=== PATIENT | female | born 1950 | race Caucasian/White ===

== ENCOUNTER 2022-04-08 14:44 | Outpatient (CLI) | payer MEDICARE | END 2022-04-08 14:45 | disposition home or self-care (01) | LOC: CSHMAMMO 14:44 | PROVIDERS: ATTEND Physician Assistant | DX: Z12.31 Encounter for screening mammogram for malignant neoplasm of breast (principal) | CPT/HCPCS: 77063; 77067 ==

== ENCOUNTER 2022-05-02 08:37 | Inpatient (IN) | payer MEDICARE ==
[~2022-05-02 08:37] MED LIST: Fentanyl 100 MCG/2 ML VIAL ONE; Propofol 1,000 MG/100 ML VIAL IV ONE
[2022-05-02] MEDS ORDERED: NOREPINEPHRINE 8 MG/250 ML-D5W 250 ML ONE ×2 (08:38→12:16)
[2022-05-02] MEDS ORDERED: Iopamidol 300 61% 100 ML VIAL FS ONE (08:57)
[2022-05-02] MEDS ORDERED: Fentanyl 100 MCG/2 ML VIAL ONE (09:01)
[2022-05-02] MEDS ORDERED: Lidocaine 1% (PF) 30 ML VIAL ONE (09:25)
[2022-05-02] MEDS ORDERED: Nitroglycerin 50 MG/250 ML BOT 0 ML ONE (09:25)
[2022-05-02] MEDS ORDERED: Heparin 10,000 UNITS/ 10 ML VIAL ONE (09:25)
[2022-05-02] MEDS ORDERED: Bivalirudin 250 MG VIAL ONE (09:26)
[2022-05-02] MEDS ORDERED: Verapamil 5 MG/2 ML VIAL ONE (09:26)
[2022-05-02] MEDS ORDERED: Sodium Chloride 0.9% 1,000 ML ONE (09:26)
[2022-05-02] MEDS ORDERED: Adenosine 6 MG/2 ML VIAL ONE (09:26)
[2022-05-02] MEDS ORDERED: Sodium Chloride 0.9% 50 ML ONE (09:26)
[2022-05-02] MEDS ORDERED: Lidocaine 1% MPF 2 ML VIAL ONE (09:27)
[2022-05-02 09:31] LABS: #Basophils 0.2 10x3/uL (0.0-0.2); #Eosinphils 0.3 10x3/uL (0.0-0.5); #Monocytes 0.6 10x3/uL (0.0-1.1); #Neutrophils 15.9 10x3/uL (1.5-8.4); %Basophils 0.9 % (0.0-2.0); %Eosinophils 1.5 % (0.0-6.0); %Lymphocytes 11.9 % (18.0-47.0); Hemoglobin 12.3 g/dL (12.0-15.5); Mean Corpuscular HGB CONC 32.5 g/dL (32.0-36.0); Mean Corpuscular Hemoglobin 31.4 pg (27.0-33.0); Mean Corpuscular Volume 96.7 fl (81.6-98.3); Mean Platelet Volume 8.4 fl (7.4-10.4); Platelet Count 337 10x3/uL (150-450); RBC Distribution Width 14.1 % (11.5-14.5); Red Blood Cell (RBC) Count 3.92 10x6/uL (3.90-5.03); White Blood Cell (WBC) Count 19.4 10x3/uL (3.5-10.5)
[2022-05-02 09:50] LABS: ALT (SGPT) 22 U/L (8-55); AST (SGOT) 30 U/L (5-34); Albumin 3.8 g/dL (3.4-4.8); Alkaline Phosphatase 58 U/L (40-110); Anion Gap 17 mmol/L (10-20); BUN (Urea Nitrogen) 10 mg/dL (9.8-20.1); Bilirubin, Total 0.6 mg/dL (0.2-1.2); Calc. Creatinine Clearance 0 mL/min (70-130); Calcium 8.1 mg/dL (7.8-10.44); Carbon Dioxide 18 mmol/L (23-31); Chloride 108 mmol/L (98-107); Estimated GFR 76; Glucose 330 mg/dL (83-110); Lipase 28 U/L (8-78); Magnesium 2.3 mg/dL (1.6-2.6); Potassium 3.7 mmol/L (3.5-5.1); Protein, Total 5.8 g/dL (5.8-8.1); Sodium 139 mmol/L (136-145)
[2022-05-02 10:27] LABS: CKMB 16.1 ng/mL (0-6.6)
[2022-05-02 10:34] LABS: Bilirubin Neg (Negative); Blood, Urine 25 (Negative); Clarity Clear (Clear); Glucose, Urine (Dipstick) Normal (Negative); Ketone, Urine Negative (Negative); Leukocyte 25 (Negative); Nitrite Negative (Negative); Protein, Urine (Dipstick) 100 mg/dl (Neg-Trace); Specific Gravity, Urine 1.015 (1.005-1.030); Urobilinogen Normal mg/dL (Less than 2)
[2022-05-02 10:50] LABS: Bacteria/HPF Rare-Few HPF (None Seen); RBC/HPF 0-3 HPF (0-3); Squamous Epithelial 0-3 HPF (0-3); WBC/HPF 0-3 HPF (0-3)
[2022-05-02 12:05] LABS: ALV-art Gradient 308.875 mmHg (0-20); Actual Bicarbonate (HCO3a) 18.9 mEq/L (22-28); Base Excess (BEa) -7.9 mEq/L (-2.0 to +3.0); CO2 Tension 43.3 mmHg (35.0-45.0); Calcium, Ionized (arterial) 1.11 mmol/L (1.12-1.30); Carboxyhemoglobin (COHb) 0.3 gm% (0.0-3.0); Hemoglobin (Hb) 12.1 g/dL (12.0-16.0); O2 Tension (PaO2), arterial 64.8 mmHg (> 70.0); Potassium - ABG Lab 3.5 mmol/L (3.70-5.30); Puncture Site RRA; pH, Arterial 7.26 (7.35-7.45)
[2022-05-02] MEDS ORDERED: Communication Order-Pharmacy FS SCH (12:40)
[2022-05-02] MEDS ORDERED: Propofol 1,000 MG/100 ML VIAL IV PRN (12:40)
[2022-05-02] MEDS ORDERED: NOREPINEPHRINE 8 MG/250 ML-D5W 250 ML IVPB SCH (12:45)
[2022-05-02] MEDS ORDERED: Morphine 2 MG/ML VIAL SLOW IVP PRN (13:00)
[2022-05-02] MEDS ORDERED: Vancomycin HCl 500 MG in Sodium Chloride 0.9% 100 ML IVPB SCH (13:00)
[2022-05-02] MEDS ORDERED: Fentanyl BOLUS 250 ML IVPB PRN (13:00)
[2022-05-02] MEDS ORDERED: Vancomycin HCl 750 MG in Sodium Chloride 0.9% 250 ML 250 ML IVPB SCH (13:00)
[2022-05-02] MEDS ORDERED: Propofol BOLUS 1,000 MG/100 ML VIAL IV PRN (13:00)
[2022-05-02] MEDS ORDERED: DISCONTINUE PREVIOUS NARCOTIC PAIN MEDICATIONS AND BENZODIAZEPINES FS SCH (13:00)
[2022-05-02] MEDS ORDERED: methylPREDNISolone Sod Succ 40 MG VIAL IVP SCH (13:15)
[2022-05-02] MEDS: Cefepime 2 GM in Sodium Chloride 0.9% 100 ML IVPB SCH (14:08)
[2022-05-02] MEDS: Lactated Ringer's 1,000 ML IV SCH ×2 (14:08→20:31)
[2022-05-02] MEDS: methylPREDNISolone Sod Succ 40 MG VIAL IVP SCH (14:09)
[2022-05-02 14:12] LABS: #Basophils 0.1 10x3/uL (0.0-0.2); #Monocytes 0.5 10x3/uL (0.0-1.1); #Neutrophils 13.5 10x3/uL (1.5-8.4); %Basophils 0.5 % (0.0-2.0); %Eosinophils 0.1 % (0.0-6.0); %Lymphocytes 6.5 % (18.0-47.0); %Monocytes 3.6 % (0.0-10.0); %Neutrophils 88.6 % (40.0-75.0); Hemoglobin 12.2 g/dL (12.0-15.5); Mean Corpuscular HGB CONC 32.7 g/dL (32.0-36.0); Mean Corpuscular Volume 94.7 fl (81.6-98.3); Mean Platelet Volume 8.7 fl (7.4-10.4); Platelet Count 376 10x3/uL (150-450); RBC Distribution Width 14.2 % (11.5-14.5); Red Blood Cell (RBC) Count 3.94 10x6/uL (3.90-5.03); White Blood Cell (WBC) Count 15.2 10x3/uL (3.5-10.5)
[2022-05-02 14:23] LABS: Lactic Acid 1.8 mmol/L (0.5-2.2)
[2022-05-02 14:28] LABS: ALT (SGPT) 27 U/L (8-55); AST (SGOT) 46 U/L (5-34); Alkaline Phosphatase 53 U/L (40-110); Anion Gap 14 mmol/L (10-20); BUN (Urea Nitrogen) 13 mg/dL (9.8-20.1); Bilirubin, Total 0.7 mg/dL (0.2-1.2); Calc. Creatinine Clearance 47 mL/min (70-130); Calcium 8.4 mg/dL (7.8-10.44); Carbon Dioxide 21 mmol/L (23-31); Chloride 107 mmol/L (98-107); Estimated GFR 75; Globulin 2.2 g/dL (2.4-3.5); Glucose 187 mg/dL (83-110); Phosphorus 4.3 mg/dL (2.3-4.7); Protein, Total 6.2 g/dL (5.8-8.1); Sodium 138 mmol/L (136-145)
[2022-05-02 14:36] LABS: Troponin I 5.362 ng/mL (< 0.028)
[2022-05-02 15:09] LABS: SARS-CoV-2 NAA Rapid Test Not Detected (NotDetected)
[2022-05-02 16:05] LABS: Actual Bicarbonate (HCO3a) 20.2 mEq/L (22-28); Base Excess (BEa) -5.2 mEq/L (-2.0 to +3.0); CO2 Tension 38.9 mmHg (35.0-45.0); Calcium, Ionized (arterial) 1.07 mmol/L (1.12-1.30); Carboxyhemoglobin (COHb) 0.1 gm% (0.0-3.0); Hemoglobin (Hb) 12.1 g/dL (12.0-16.0); O2 Tension (PaO2), arterial 149.2 mmHg (> 70.0); Potassium - ABG Lab 4.2 mmol/L (3.70-5.30); Puncture Site Arterial Line; pH, Arterial 7.33 (7.35-7.45)
[2022-05-02 16:07] LABS: ALV-art Gradient 87.375 mmHg (0-20)
[2022-05-02] MEDS: Propofol 1,000 MG/100 ML VIAL IV PRN (18:08)
[2022-05-02 20:14] LABS: Troponin I 6.384 ng/mL (< 0.028)
[2022-05-02] MEDS ORDERED: Famotidine/PF 20 mg/2ml Vial SLOW IVP SCH (21:00)
[2022-05-02] MEDS ORDERED: Vancomycin HCl 0.75 GM in Sodium Chloride 0.9% 250 ML 300 ML IVPB SCH (21:00)
[2022-05-03] MEDS: Lorazepam 2 MG/ML VIAL SLOW IVP PRN ×2 (01:32→03:47)
[2022-05-03] MEDS: Cefepime 2 GM in Sodium Chloride 0.9% 100 ML IVPB SCH ×2 (01:35→12:17)
[2022-05-03] MEDS: Propofol 1,000 MG/100 ML VIAL IV PRN ×3 (01:35→21:16)
[2022-05-03] MEDS: FENTANYL 2,000MCG/100-0.9%NACL 100 ML IVPB SCH ×2 (01:45→15:30)
[2022-05-03 04:41] LABS: #Eosinphils 0.2 10x3/uL (0.0-0.5); #Monocytes 1.4 10x3/uL (0.0-1.1); #Neutrophils 11.1 10x3/uL (1.5-8.4); %Basophils 0.1 % (0.0-2.0); %Eosinophils 1.4 % (0.0-6.0); %Lymphocytes 7.9 % (18.0-47.0); %Neutrophils 80.2 % (40.0-75.0); Hemoglobin 10.3 g/dL (12.0-15.5); Mean Corpuscular HGB CONC 32.8 g/dL (32.0-36.0); Mean Corpuscular Hemoglobin 31.1 pg (27.0-33.0); Mean Corpuscular Volume 94.9 fl (81.6-98.3); Mean Platelet Volume 8.8 fl (7.4-10.4); Platelet Count 251 10x3/uL (150-450); RBC Distribution Width 14.4 % (11.5-14.5); Red Blood Cell (RBC) Count 3.31 10x6/uL (3.90-5.03); White Blood Cell (WBC) Count 13.9 10x3/uL (3.5-10.5)
[2022-05-03 04:54] LABS: Prothrombin Time 10.9 sec (9.5-12.1)
[2022-05-03 04:55] LABS: Anion Gap 17 mmol/L (10-20); BUN (Urea Nitrogen) 19 mg/dL (9.8-20.1); Calc. Creatinine Clearance 56 mL/min (70-130); Calcium 7.9 mg/dL (7.8-10.44); Carbon Dioxide 16 mmol/L (23-31); Chloride 111 mmol/L (98-107); Estimated GFR 91; Glucose 117 mg/dL (83-110); Potassium 4.1 mmol/L (3.5-5.1); Sodium 140 mmol/L (136-145)
[2022-05-03] MEDS: Lactated Ringer's 1,000 ML IV SCH (05:20)
[2022-05-03 07:27] LABS: Actual Bicarbonate (HCO3a) 21.9 mEq/L (22-28); Base Excess (BEa) -3.1 mEq/L (-2.0 to +3.0); CO2 Tension 38.8 mmHg (35.0-45.0); Calcium, Ionized (arterial) 1.11 mmol/L (1.12-1.30); Carboxyhemoglobin (COHb) 0.3 gm% (0.0-3.0); Hemoglobin (Hb) 11.5 g/dL (12.0-16.0); O2 Tension (PaO2), arterial 182.1 mmHg (> 70.0); Potassium - ABG Lab 4.2 mmol/L (3.70-5.30); Puncture Site Arterial Line; pH, Arterial 7.37 (7.35-7.45)
[2022-05-03] MEDS ORDERED: Carvedilol 3.125 MG TAB PO SCH (08:00)
[2022-05-03] MEDS: methylPREDNISolone Sod Succ 40 MG VIAL IVP SCH ×2 (08:36→20:44)
[2022-05-03] MEDS: Pantoprazole 40 MG VIAL IVP SCH (08:36)
[2022-05-03] MEDS: Sodium Chloride 0.45% 1,000 ML IV SCH ×2 (08:37→20:44)
[2022-05-03] MEDS ORDERED: Sodium Chloride 0.9% 100 ML ONE (12:15)
[2022-05-03] MEDS ORDERED: Vancomycin HCl 500 MG in Sodium Chloride 0.9% 100 ML IVPB SCH (13:00)
[2022-05-03] MEDS ORDERED: Furosemide 20 MG/2 ML VIAL SLOW IVP SCH (15:30)
[2022-05-03] MEDS: Carvedilol 6.25 MG TAB PO SCH (17:12)
[2022-05-03] MEDS: Atorvastatin Calcium 20 MG TAB PO SCH (20:44)
[2022-05-04] MEDS: Cefepime 2 GM in Sodium Chloride 0.9% 100 ML IVPB SCH (00:58)
[2022-05-04 03:51] LABS: Actual Bicarbonate (HCO3a) 24.2 mEq/L (22-28); Base Excess (BEa) -0.6 mEq/L (-2.0 to +3.0); CO2 Tension 40.6 mmHg (35.0-45.0); Calcium, Ionized (arterial) 1.16 mmol/L (1.12-1.30); Carboxyhemoglobin (COHb) 0.3 gm% (0.0-3.0); Critical Notified By: CP.PH; O2 Tension (PaO2), arterial 90.1 mmHg (> 70.0); Potassium - ABG Lab 3.7 mmol/L (3.70-5.30); Puncture Site RRA; RapidComm Collect By CP.PH; pH, Arterial 7.39 (7.35-7.45)
[2022-05-04 04:14] LABS: #Monocytes 0.5 10x3/uL (0.0-1.1); %Basophils 0.1 % (0.0-2.0); %Lymphocytes 7.9 % (18.0-47.0); %Monocytes 4.5 % (0.0-10.0); %Neutrophils 86.9 % (40.0-75.0); Hemoglobin 10.1 g/dL (12.0-15.5); Mean Corpuscular HGB CONC 32.4 g/dL (32.0-36.0); Mean Corpuscular Hemoglobin 30.8 pg (27.0-33.0); Mean Corpuscular Volume 95.1 fl (81.6-98.3); Mean Platelet Volume 8.9 fl (7.4-10.4); Platelet Count 245 10x3/uL (150-450); RBC Distribution Width 14.4 % (11.5-14.5); Red Blood Cell (RBC) Count 3.28 10x6/uL (3.90-5.03); White Blood Cell (WBC) Count 10.3 10x3/uL (3.5-10.5)
[2022-05-04 04:42] LABS: Anion Gap 15 mmol/L (10-20); BUN (Urea Nitrogen) 22 mg/dL (9.8-20.1); Calc. Creatinine Clearance 59 mL/min (70-130); Calcium 8.5 mg/dL (7.8-10.44); Carbon Dioxide 21 mmol/L (23-31); Chloride 108 mmol/L (98-107); Estimated GFR 92; Glucose 149 mg/dL (83-110); Potassium 3.7 mmol/L (3.5-5.1); Sodium 140 mmol/L (136-145)
[2022-05-04] MEDS: Propofol 1,000 MG/100 ML VIAL IV PRN (05:33)
[2022-05-04] MEDS: methylPREDNISolone Sod Succ 40 MG VIAL IVP SCH (08:25)
[2022-05-04] MEDS: Aspirin 81 mg Enteric Coated Tablet PO SCH (08:25)
[2022-05-04] MEDS: Pantoprazole 40 MG VIAL IVP SCH (08:25)
[2022-05-04] MEDS: Carvedilol 6.25 MG TAB PO SCH ×2 (08:25→17:12)
[2022-05-04] MEDS: Sodium Chloride 0.45% 1,000 ML IV SCH (17:12)
[2022-05-04] MEDS: Atorvastatin Calcium 20 MG TAB PO SCH (20:42)
[2022-05-05] MEDS: Sodium Chloride 0.45% 1,000 ML IV SCH ×2 (00:49→12:24)
[2022-05-05 04:59] LABS: Anion Gap 10 mmol/L (10-20); BUN (Urea Nitrogen) 21 mg/dL (9.8-20.1); Calc. Creatinine Clearance 65 mL/min (70-130); Calcium 8.2 mg/dL (7.8-10.44); Carbon Dioxide 25 mmol/L (23-31); Chloride 110 mmol/L (98-107); Estimated GFR 93; Glucose 93 mg/dL (83-110); Potassium 3.4 mmol/L (3.5-5.1); Sodium 142 mmol/L (136-145)
[2022-05-05] MEDS: methylPREDNISolone Sod Succ 40 MG VIAL IVP SCH (08:05)
[2022-05-05] MEDS: Pantoprazole 40 MG VIAL IVP SCH (08:05)
[2022-05-05] MEDS ORDERED: Chloraseptic Spray 180 ml Bottle PO PRN (08:52)
[2022-05-05] MEDS: Potassium Chloride 20 MEQ in Premix Bag 1 BAG IVPB SCH ×2 (09:28→10:51)
[2022-05-05] MEDS: Aspirin 81 mg Enteric Coated Tablet PO SCH (10:07)
[2022-05-05] MEDS: Carvedilol 6.25 MG TAB PO SCH ×2 (10:07→17:29)
[2022-05-05] MEDS: Atorvastatin Calcium 20 MG TAB PO SCH (20:43)
[2022-05-06] MEDS: Sodium Chloride 0.45% 1,000 ML IV SCH ×2 (03:06→11:07)
[2022-05-06 04:33] LABS: Anion Gap 14 mmol/L (10-20); BUN (Urea Nitrogen) 20 mg/dL (9.8-20.1); Calc. Creatinine Clearance 66 mL/min (70-130); Calcium 8.3 mg/dL (7.8-10.44); Carbon Dioxide 22 mmol/L (23-31); Chloride 108 mmol/L (98-107); Estimated GFR 93; Glucose 91 mg/dL (83-110); Potassium 3.9 mmol/L (3.5-5.1); Sodium 140 mmol/L (136-145)
[2022-05-06] MEDS: methylPREDNISolone Sod Succ 40 MG VIAL IVP SCH (07:47)
[2022-05-06] MEDS: Pantoprazole 40 MG VIAL IVP SCH (07:48)
[2022-05-06] MEDS: Carvedilol 6.25 MG TAB PO SCH ×2 (08:17→16:54)
[2022-05-06] MEDS: Aspirin 81 mg Enteric Coated Tablet PO SCH (08:17)
[2022-05-06] MEDS: Nicotine 14 MG PATCH TD SCH (08:50)
[2022-05-06] MEDS ORDERED: Furosemide 20 MG/2 ML VIAL SLOW IVP SCH (09:00)
[2022-05-06] MEDS ORDERED: Guaifenesin DM 100-10/5 ML UDCUP PO PRN (09:47)
[2022-05-06] MEDS: Carvedilol 3.125 MG TAB PO SCH (18:03)
[2022-05-06] MEDS: Atorvastatin Calcium 20 MG TAB PO SCH (21:25)
[2022-05-06] MEDS: Mirtazapine 15 MG TAB PO SCH (21:25)
[2022-05-07] MEDS: Sodium Chloride 0.45% 1,000 ML IV SCH (04:14)
[2022-05-07] MEDS: Acetaminophen 325 MG TAB PO PRN ×2 (04:15→15:01)
[2022-05-07 05:03] LABS: Anion Gap 16 mmol/L (10-20); BUN (Urea Nitrogen) 17 mg/dL (9.8-20.1); Calc. Creatinine Clearance 69 mL/min (70-130); Calcium 8.4 mg/dL (7.8-10.44); Carbon Dioxide 21 mmol/L (23-31); Chloride 109 mmol/L (98-107); Estimated GFR 93; Glucose 94 mg/dL (83-110); Potassium 4.1 mmol/L (3.5-5.1); Sodium 142 mmol/L (136-145)
[2022-05-07] MEDS ORDERED: Carvedilol 3.125 MG TAB ONE (08:08)
[2022-05-07] MEDS ORDERED: methylPREDNISolone Sod Succ 40 MG VIAL IVP SCH (09:00)
[2022-05-07] MEDS: Nicotine 14 MG PATCH TD SCH (09:11)
[2022-05-07] MEDS: Furosemide 20 MG/2 ML VIAL SLOW IVP SCH ×3 (09:16→15:20)
[2022-05-07] MEDS: Pantoprazole 40 MG VIAL IVP SCH (09:17)
[2022-05-07] MEDS: Aspirin 81 mg Enteric Coated Tablet PO SCH (09:17)
[2022-05-07] MEDS: Carvedilol 3.125 MG TAB PO SCH ×2 (09:17→17:49)
[2022-05-07 15:41] VITALS: BMI 21.2
[2022-05-07] MEDS: Atorvastatin Calcium 20 MG TAB PO SCH (21:08)
[2022-05-07] MEDS: Mirtazapine 15 MG TAB PO SCH (21:08)
[2022-05-08 04:38] LABS: Anion Gap 10 mmol/L (10-20); BUN (Urea Nitrogen) 15 mg/dL (9.8-20.1); Calc. Creatinine Clearance 77 mL/min (70-130); Calcium 8.3 mg/dL (7.8-10.44); Carbon Dioxide 25 mmol/L (23-31); Chloride 106 mmol/L (98-107); Estimated GFR 95; Glucose 91 mg/dL (83-110); Magnesium 2.1 mg/dL (1.6-2.6); Potassium 3.4 mmol/L (3.5-5.1); Sodium 138 mmol/L (136-145)
[2022-05-08] MEDS ORDERED: Furosemide 40 MG TAB PO SCH (07:30)
[2022-05-08] MEDS ORDERED: Potassium Chloride 20 MEQ TAB PO SCH (08:00)
[2022-05-08] MEDS: Acetaminophen 325 MG TAB PO PRN (08:47)
[2022-05-08] MEDS: predniSONE 20 MG TAB PO SCH (08:57)
[2022-05-08] MEDS: Aspirin 81 mg Enteric Coated Tablet PO SCH (08:57)
[2022-05-08] MEDS: Carvedilol 3.125 MG TAB PO SCH ×2 (08:57→17:25)
[2022-05-08] MEDS: Nicotine 14 MG PATCH TD SCH (08:58)
[2022-05-08] MEDS: Pantoprazole 40 MG VIAL IVP SCH (08:58)
[2022-05-08] MEDS ORDERED: Sertraline 25 MG TAB PO SCH ×2 (09:00→21:00)
[2022-05-08] MEDS: Furosemide 40 MG TAB PO SCH (12:33)
[2022-05-08] MEDS ORDERED: Loperamide HCl 2 MG CAP PO SCH (20:30)
[2022-05-08] MEDS: Atorvastatin Calcium 20 MG TAB PO SCH (20:33)
[2022-05-09 05:07] LABS: Anion Gap 13 mmol/L (10-20); BUN (Urea Nitrogen) 15 mg/dL (9.8-20.1); Calc. Creatinine Clearance 67 mL/min (70-130); Calcium 8.4 mg/dL (7.8-10.44); Carbon Dioxide 23 mmol/L (23-31); Chloride 108 mmol/L (98-107); Estimated GFR 93; Glucose 90 mg/dL (83-110); Potassium 3.7 mmol/L (3.5-5.1); Sodium 140 mmol/L (136-145)
[2022-05-09] MEDS: Acetaminophen 325 MG TAB PO PRN (05:34)
[2022-05-09] MEDS ORDERED: Potassium Bicarbonate/Cit Ac 20 MEQ TAB PO SCH (08:00)
[2022-05-09] MEDS: Carvedilol 3.125 MG TAB PO SCH (08:56)
[2022-05-09] MEDS: Pantoprazole 40 MG VIAL IVP SCH (08:56)
[2022-05-09] MEDS: Aspirin 81 mg Enteric Coated Tablet PO SCH (08:56)
[2022-05-09] MEDS: predniSONE 20 MG TAB PO SCH (08:56)
[2022-05-09] MEDS ORDERED: Saccharomyces boulardii 250 MG CAP PO SCH (09:00)
[2022-05-09] MEDS: Nicotine 14 MG PATCH TD SCH (09:06)
[2022-05-09 11:27] VITALS: BP 110/65; TEMP 98.4
[2022-05-09] MEDS: Furosemide 40 MG TAB PO SCH (11:50)
== END 2022-05-09 12:09 | disposition home or self-care (01) | DRG 871 ==
LOC: CSHERS 08:37 → CSHICU 10:48 → CSHTELE 05-06 13:26
PROVIDERS: ADMIT Family Medicine; ATTEND Internal Medicine
PROC: 4A023N7 Measurement of Cardiac Sampling and Pressure, Left Heart, Percutaneous Approach (ICD-10-PCS; principal; 2022-05-02)
PROC: B2111ZZ Fluoroscopy of Multiple Coronary Arteries using Low Osmolar Contrast (ICD-10-PCS; 2022-05-02)
PROC: 3E033XZ Introduction of Vasopressor into Peripheral Vein, Percutaneous Approach (ICD-10-PCS; 2022-05-02)
PROC: 3E0234Z Introduction of Serum, Toxoid and Vaccine into Muscle, Percutaneous Approach (ICD-10-PCS; 2022-05-02)
PROC: 5A1945Z Respiratory Ventilation, 24-96 Consecutive Hours (ICD-10-PCS; 2022-05-02)
PROC: 0DH67UZ Insertion of Feeding Device into Stomach, Via Natural or Artificial Opening (ICD-10-PCS; 2022-05-02)
PROC: 02HV33Z Insertion of Infusion Device into Superior Vena Cava, Percutaneous Approach (ICD-10-PCS; 2022-05-02)
DX: A41.9 Sepsis, unspecified organism (principal); I21.A1 Myocardial infarction type 2; R65.21 Severe sepsis with septic shock; R57.0 Cardiogenic shock; J96.01 Acute respiratory failure with hypoxia; J18.9 Pneumonia, unspecified organism; I42.8 Other cardiomyopathies; I51.81 Takotsubo syndrome; J44.1 Chronic obstructive pulmonary disease with (acute) exacerbation; J44.0 Chronic obstructive pulmonary disease with (acute) lower respiratory infection; K44.9 Diaphragmatic hernia without obstruction or gangrene; F17.210 Nicotine dependence, cigarettes, uncomplicated; I25.10 Atherosclerotic heart disease of native coronary artery without angina pectoris; Z20.822 Contact with and (suspected) exposure to COVID-19; E87.6 Hypokalemia; R53.81 Other malaise; Z90.710 Acquired absence of both cervix and uterus; Z82.49 Family history of ischemic heart disease and other diseases of the circulatory system; Z90.79 Acquired absence of other genital organ(s); Z90.49 Acquired absence of other specified parts of digestive tract; Z90.722 Acquired absence of ovaries, bilateral; Z88.0 Allergy status to penicillin
CPT/HCPCS: 36415; 36416; 36556; 36600; 70450; 71045; 80048; 80053; 81003; 81015; 82553; 82805; 83605; 83690; 83735; 83880; 84100; 84145; 84439; 84443; 84484; 85025; 85379; 85610; 85730; 87040; 87086; 87324; 87449; 87811; 93005; 93306; 93458; 94002; 94003; 94640; 94667; 94760; 96365; 96374; 96375; C1769; C1894; C9113; J0153; J0583; J0692; J1644; J1650; J1940; J1956; J2001; J2060; J2704; J2920; J3010; J3370; J3480; J3490; J7050; J7120; J7512; J7620; Q9967; S0028